=== PATIENT | male | born 1975 | race Caucasian/White ===

== ENCOUNTER 2016-12-13 17:30 | Inpatient (IN) | payer OTHER ==
[~2016-12-13] VITALS: Ht 175.3 cm; Wt 135.7 kg
[~2016-12-13 17:30] MED LIST: ADVAIR 250/501 DIS1 IH; ALLOPURINOL300 MG PO; ALTACE5 MG PO; BENTYL10 MG PO; BENTYL20 MG PO; DELTASONE20 M1 PO; FENOFIBRATE160 M1 PO; GLIPIZIDE5 M1 PO; HUMIRA10 MG/0.2 SC; JANUVIA25 M1 PO; LANTUS 3 M100 UNITS1 SC; LOPERAMIDE2 M1 PO; METFORMIN HCL500 MG PO; METRONIDAZOLE500 MG PO; NOVOLOG 10100 UNITS/ SC; OXAYDO5 MG PO; PANTOPRAZOLE SO40 MG PO; PERCOCET 5/31 TABLET PO; PHENERGAN25 MG PR; PRAVASTATIN SOD20 MG PO; PROMETHAZINE HC25 M1 PO; RANITIDINE HCL300 MG PO; TRICOR145 MG PO; VENTOLIN17 GM IH; VICTOZA 2-0.6 MG/0.1 SC; ZANTAC150 MG PO; ZOFRAN ODT4 MG PO; ZYLOPRIM300 MG PO
[2016-12-13 18:58] LABS: BASE EXCESS -1.5 mEq/L (-3 to +3); BICARBONATE 21.7 mEq/L (22-26); CARBOXY HGB 0 % (0-5); COMMENTS - BLOOD GASES NAC+; DEVICE PB 840 NIPPV; FI02 100 %; METHEMOGLOBIN 0.7 % (0-1.5); MODE SPONT; PCO2 32 mm Hg (35-45); PO2 516 mm Hg (80-100); SITE RR; TOTAL RESP RATE 18 resp/min; pH 7.44 (7.35-7.45)
[2016-12-13 18:59] LABS: PEEP 5 CM/H20; PRES. SUPPORT 10 CM/H2O
[2016-12-13 19:05] LABS: EOSINOPHIL (%) 1.1 % (0-5); EOSINOPHIL COUNT 0.1 K/uL (0-0.3); HEMATOCRIT 41.6 % (38.0-50.0); IMMATURE GRANULOCYTE (%) 0.3 % (0.0-0.7); IMMATURE GRANULOCYTE COUNT 0.3 K/uL; LYMPHOCYTE COUNT 0.9 K/uL (1.0-2.8); MCH 29.8 PG (29.0-34.0); MCHC 33.9 G/DL (30.0-36.0); MCV 87.9 FL (86-99); MEAN PLAT.VOLUME 11.6 uM^3 (9.0-12.4); MONOCYTE COUNT 0.6 K/uL (0-0.8); NEUTROPHIL (%) 83.5 % (45-76); NEUTROPHIL COUNT 8.5 K/uL (1.8-6.4); PLATELET COUNT 236 K/uL (156-360); RBC DIS.WIDTH-CV 12.5 % (11.8-14.6); RBC DIS.WIDTH-SD 39.7 % (39-53); RED BLOOD COUNT 4.73 M/uL (4.00-5.50); WHITE BLOOD COUNT 10.1 K/uL (4.1-10.2)
[2016-12-13 19:16] LABS: CHLORIDE 106 mEq/L (99-109); SODIUM 140 mEq/L (136-147)
[2016-12-13 19:18] LABS: GLUCOSE 192 mg/dL (70-99)
[2016-12-13 19:19] LABS: ANION GAP 12 MEQ/L (2-14)
[2016-12-13 19:20] LABS: TOTAL BILIRUBIN 0.4 mg/dL (0.0-1.0)
[2016-12-13 19:21] LABS: ALKALINE PHOSPHATASE 27 IU/L (3-129)
[2016-12-13 19:22] LABS: GFR ESTIMATE (CALCULATED) > 59 mL/min/
[2016-12-13 19:23] LABS: UREA NITROGEN (BUN) 19 mg/dL (9-23)
[2016-12-13 19:26] LABS: TROP-I INTERPRETATION NEGATIVE; TROPONIN-I < 0.01 ng/mL (0.0-0.30)
[2016-12-13] MEDS ORDERED: INSULIN PUMP SCCONT (20:24)
[2016-12-13 20:33] LABS: INFLUENZA A VIRAL ANTIGEN POSITIVE; INFLUENZA B VIRAL ANTIGEN NEGATIVE
[2016-12-14 01:29] VITALS: BP 98/58
[2016-12-14 01:58] LABS: METH RESISTANT S AUREUS PCR POSITIVE (NEGATIVE)
[2016-12-14 02:00] LABS: PROBE CHECK PASS
[2016-12-14 02:41] LABS: POINT-OF-CARE METER ID UU13113698
[2016-12-14 05:18] VITALS: BP 98/53
[2016-12-14 06:22] LABS: HEMATOCRIT 38.9 % (38.0-50.0); MCH 30.3 PG (29.0-34.0); MCHC 33.9 G/DL (30.0-36.0); MCV 89.4 FL (86-99); MEAN PLAT.VOLUME 11.9 uM^3 (9.0-12.4); PLATELET COUNT 209 K/uL (156-360); RBC DIS.WIDTH-CV 12.7 % (11.8-14.6); RBC DIS.WIDTH-SD 41.4 % (39-53); RED BLOOD COUNT 4.35 M/uL (4.00-5.50)
[2016-12-14 06:23] LABS: WHITE BLOOD COUNT 6.7 K/uL (4.1-10.2)
[2016-12-14 06:28] LABS: ANION GAP 11 MEQ/L (2-14); CHLORIDE 104 MEQ/L (99-109); GFR ESTIMATE (CALCULATED) > 59 mL/min/; GLUCOSE 258 mg/dL (70-99); POTASSIUM 4.5 MEQ/L (3.7-5.4); SAMPLE HEMOLYSIS CHECK 0; SAMPLE ICTERIC CHECK 0; SAMPLE LIPEMIA CHECK 0; SODIUM 136 MEQ/L (136-147); UREA NITROGEN (BUN) 16 mg/dL (9-23)
[2016-12-14 07:49] LABS: POINT-OF-CARE METER ID UU13113698
[2016-12-14 09:06] VITALS: BP 127/69
[2016-12-14 11:44] LABS: POINT-OF-CARE METER ID UU13113698
[2016-12-14 12:23] VITALS: BP 114/63
[2016-12-14 16:33] VITALS: BP 118/61
[2016-12-14 16:46] LABS: POINT-OF-CARE METER ID UU14174216
[2016-12-14] MEDS ORDERED: OSELTAMIVIR PHO75 MG PO (17:17)
== END 2016-12-14 18:27 | disposition home or self-care (01) | DRG 202 ==
LOC: EME → EDBD 17:30 → EME 17:30 → EDOF 23:27 → 4EAST 12-14 00:38
PROVIDERS: Emergency Medicine; Internal Medicine; Pediatrics
DX: J45.901 Unspecified asthma with (acute) exacerbation (principal); J96.01 Acute respiratory failure with hypoxia; Z68.41 Body mass index [BMI] 40.0-44.9, adult; J10.1 Influenza due to other identified influenza virus with other respiratory manifestations; E11.9 Type 2 diabetes mellitus without complications; I10 Essential (primary) hypertension; E78.5 Hyperlipidemia, unspecified; K21.9 Gastro-esophageal reflux disease without esophagitis; Z96.41 Presence of insulin pump (external) (internal); R91.1 Solitary pulmonary nodule; G47.33 Obstructive sleep apnea (adult) (pediatric); L40.9 Psoriasis, unspecified; E66.01 Morbid (severe) obesity due to excess calories; Z90.49 Acquired absence of other specified parts of digestive tract
CPT/HCPCS: 36600; 71010; 71275; 80048; 80053; 82803; 82948; 83880; 84484; 85025; 85027; 87502; 87641; 87651 90; 93005; 94002; 94640; 94640 76; 94644; 94799; 99202; J0171; J1030; J1100; J1644; J2930; J3475; J7030; J7644

== ENCOUNTER 2017-08-06 06:34 | Emergency (ER) | payer OTHER ==
[~2017-08-06] VITALS: Ht 175.3 cm; Wt 138.5 kg
[~2017-08-06 06:34] MED LIST changes: +INSULIN PUMP SCCONT; +OSELTAMIVIR PHO75 MG PO
[2017-08-06 06:58] LABS: HEMATOCRIT 43.7 % (38.0-50.0); MCH 29.5 PG (29.0-34.0); MCV 89.5 FL (86-99); MEAN PLAT.VOLUME 11.7 uM^3 (9.0-12.4); PLATELET COUNT 226 K/uL (156-360); RBC DIS.WIDTH-CV 12.5 % (11.8-14.6); RBC DIS.WIDTH-SD 41.1 % (39-53); RED BLOOD COUNT 4.88 M/uL (4.00-5.50); WHITE BLOOD COUNT 7.8 K/uL (4.1-10.2)
[2017-08-06 07:25] LABS: CHLORIDE 104 mEq/L (99-109); SODIUM 136 mEq/L (136-147)
[2017-08-06 07:27] LABS: GLUCOSE 222 mg/dL (70-99)
[2017-08-06 07:28] LABS: ANION GAP 10 MEQ/L (2-14)
[2017-08-06 07:30] LABS: GFR ESTIMATE (CALCULATED) > 59 mL/min/
[2017-08-06 07:31] LABS: UREA NITROGEN (BUN) 22 mg/dL (9-23)
[2017-08-06] MEDS ORDERED: GLUCOPHAGE500 MG PO (07:45)
[2017-08-06] MEDS ORDERED: HUMALOG100 UNIT/1 SC (07:47)
[2017-08-06] MEDS ORDERED: ADVAIR HFA120 INHALA IH (07:49)
[2017-08-06] MEDS ORDERED: FARXIGA5 MG PO (07:50)
[2017-08-06] MEDS ORDERED: PREDNISONE20 MG PO (08:32)
[2017-08-06 09:09] VITALS: BP 105/76
== END 2017-08-06 09:11 | disposition home or self-care (01) ==
LOC: EME 06:34
DX: J45.901 Unspecified asthma with (acute) exacerbation (principal); R11.0 Nausea; Z87.891 Personal history of nicotine dependence; E11.9 Type 2 diabetes mellitus without complications; Z79.4 Long term (current) use of insulin; E78.5 Hyperlipidemia, unspecified; I10 Essential (primary) hypertension; K21.9 Gastro-esophageal reflux disease without esophagitis
CPT/HCPCS: 71020; 80048; 85027; 94640; 99281; 99285; J2405; J2930; J7030

== ENCOUNTER 2017-08-29 20:09 | Emergency (ER) | payer OTHER ==
[~2017-08-29] VITALS: Ht 175.3 cm; Wt 140.6 kg
[~2017-08-29 20:09] MED LIST changes: +ADVAIR HFA120 INHALA IH; +FARXIGA5 MG PO; +GLUCOPHAGE500 MG PO; +HUMALOG100 UNIT/1 SC; +PREDNISONE20 MG PO
[2017-08-29 20:50] LABS: EOSINOPHIL (%) 4.2 % (0-5); EOSINOPHIL COUNT 0.2 K/uL (0-0.3); HEMATOCRIT 42.5 % (38.0-50.0); IMMATURE GRANULOCYTE (%) 0.4 % (0.0-0.7); INSTRUMENT ABS NEUTROPHIL CT 2.8 K/uL; LYMPHOCYTE COUNT 1.6 K/uL (1.0-2.8); MCH 30.1 PG (29.0-34.0); MCHC 33.4 G/DL (30.0-36.0); MEAN PLAT.VOLUME 11.5 uM^3 (9.0-12.4); MONOCYTE (%) 15.3 % (3-12); MONOCYTE COUNT 0.8 K/uL (0-0.8); NEUTROPHIL (%) 50.6 % (45-76); NEUTROPHIL COUNT 2.8 K/uL (1.8-6.4); PLATELET COUNT 230 K/uL (156-360); RBC DIS.WIDTH-CV 12.5 % (11.8-14.6); RBC DIS.WIDTH-SD 41.1 % (39-53); RED BLOOD COUNT 4.72 M/uL (4.00-5.50); WHITE BLOOD COUNT 5.5 K/uL (4.1-10.2)
[2017-08-29 21:08] LABS: CHLORIDE 103 mEq/L (99-109); POTASSIUM 3.5 mEq/L (3.7-5.4); SODIUM 138 mEq/L (136-147)
[2017-08-29 21:09] LABS: MAGNESIUM 1.8 mg/dL (1.3-2.7)
[2017-08-29 21:11] LABS: GLUCOSE 155 mg/dL (70-99)
[2017-08-29 21:12] LABS: ANION GAP 13 MEQ/L (2-14)
[2017-08-29 21:13] LABS: TOTAL BILIRUBIN 0.4 mg/dL (0.0-1.0)
[2017-08-29 21:14] LABS: ALKALINE PHOSPHATASE 29 IU/L (3-129); GFR ESTIMATE (CALCULATED) > 59 mL/min/
[2017-08-29 21:16] LABS: UREA NITROGEN (BUN) 14 mg/dL (9-23)
[2017-08-29 21:18] LABS: CREATINE KINASE 84 IU/L (1-294); LIPASE 25 U/L (1.0-51.0); TOTAL CK 84 IU/L (1-294); TROP-I INTERPRETATION NEGATIVE; TROPONIN-I < 0.01 ng/mL (0.0-0.30)
[2017-08-29 21:23] LABS: CK-MB 0.8 ng/mL (0.0-4.9)
[2017-08-29 21:43] LABS: ADD MIUA? NO; BILIRUBIN NEGATIVE; BLOOD NEGATIVE; COLOR YELLOW ((YELLOW)); GLUCOSE (STRIP) >=500; KETONES NEGATIVE; LEUKOCYTES NEGATIVE; NITRITE NEGATIVE; PROTEIN (STRIP) NEGATIVE; SPECIFIC GRAVITY 1.017 (1.000-1.030); UCUL ADDED? NO; UROBILINOGEN 0.2 MG/DL (0.2-1.0)
[2017-08-30] MEDS ORDERED: BENTYL20 MG PO (01:08)
[2017-08-30 01:15] VITALS: BP 108/63
== END 2017-08-30 01:45 | disposition home or self-care (01) ==
LOC: EME 20:09
PROVIDERS: Emergency Medicine
DX: R10.84 Generalized abdominal pain (principal); R07.9 Chest pain, unspecified; E11.9 Type 2 diabetes mellitus without complications; E78.5 Hyperlipidemia, unspecified; I10 Essential (primary) hypertension; Z79.4 Long term (current) use of insulin; K21.9 Gastro-esophageal reflux disease without esophagitis; E66.9 Obesity, unspecified; J45.909 Unspecified asthma, uncomplicated; Z87.442 Personal history of urinary calculi; M10.9 Gout, unspecified; Z87.891 Personal history of nicotine dependence
CPT/HCPCS: 71020; 71275; 74174; 80053; 81003; 82010; 82550; 82553; 83605; 83690; 83735; 84484; 85025; 93005; 99281; 99285; J1885; J2270; J7030

== ENCOUNTER 2017-10-26 08:58 | Emergency (ER) | payer OTHER ==
[~2017-10-26] VITALS: Ht 175.3 cm; Wt 137.3 kg
[2017-10-26 09:56] LABS: EOSINOPHIL (%) 1.1 % (0-5); EOSINOPHIL COUNT 0.1 K/uL (0-0.3); HEMATOCRIT 49.1 % (38.0-50.0); IMMATURE GRANULOCYTE (%) 0.3 % (0.0-0.7); INSTRUMENT ABS NEUTROPHIL CT 9.7 K/uL; LYMPHOCYTE COUNT 1.7 K/uL (1.0-2.8); MCH 29.9 PG (29.0-34.0); MCHC 34.2 G/DL (30.0-36.0); MCV 87.5 FL (86-99); MEAN PLAT.VOLUME 11.3 uM^3 (9.0-12.4); MONOCYTE (%) 6.3 % (3-12); MONOCYTE COUNT 0.8 K/uL (0-0.8); NEUTROPHIL (%) 78.3 % (45-76); NEUTROPHIL COUNT 9.7 K/uL (1.8-6.4); PLATELET COUNT 262 K/uL (156-360); RBC DIS.WIDTH-SD 38.8 % (39-53); RED BLOOD COUNT 5.61 M/uL (4.00-5.50); WHITE BLOOD COUNT 12.4 K/uL (4.1-10.2)
[2017-10-26 10:04] LABS: CHLORIDE 103 mEq/L (99-109); POTASSIUM 4.6 mEq/L (3.7-5.4); SODIUM 135 mEq/L (136-147)
[2017-10-26 10:06] LABS: GLUCOSE 246 mg/dL (70-99)
[2017-10-26 10:07] LABS: ANION GAP 13 MEQ/L (2-14)
[2017-10-26 10:08] LABS: TOTAL BILIRUBIN 0.6 mg/dL (0.0-1.0)
[2017-10-26 10:09] LABS: ALKALINE PHOSPHATASE 32 IU/L (3-129)
[2017-10-26 10:10] LABS: GFR ESTIMATE (CALCULATED) > 59 mL/min/ (58.99-99999)
[2017-10-26 10:11] LABS: UREA NITROGEN (BUN) 17 mg/dL (9-23)
[2017-10-26 10:13] LABS: LIPASE 25 U/L (1.0-51.0)
[2017-10-26 13:49] LABS: ADD MIUA? YES; BILIRUBIN NEGATIVE; BLOOD NEGATIVE; GLUCOSE (STRIP) 150; KETONES NEGATIVE; LEUKOCYTES NEGATIVE; NITRITE NEGATIVE; PROTEIN (STRIP) 30; UROBILINOGEN 0.2 MG/DL (0.2-1.0)
[2017-10-26 13:50] LABS: COLOR YELLOW ((YELLOW))
[2017-10-26 13:57] LABS: BACTERIA RARE /HPF; EPITHELIAL CELLS RARE /HPF; HYALINE CASTS TNTC /LPF; MUCUS 2+ /LPF; UCUL ADDED? YES
[2017-10-26 14:20] LABS: SPECIFIC GRAVITY 1.098 (1.000-1.030)
[2017-10-26] MEDS ORDERED: BENTYL20 MG PO (15:17)
[2017-10-26 15:45] VITALS: BP 128/79
== END 2017-10-26 15:48 | disposition home or self-care (01) ==
LOC: EME 08:58
PROVIDERS: Emergency Medicine
DX: R10.9 Unspecified abdominal pain (principal); K52.9 Noninfective gastroenteritis and colitis, unspecified; E10.9 Type 1 diabetes mellitus without complications; G89.29 Other chronic pain; K21.9 Gastro-esophageal reflux disease without esophagitis; I10 Essential (primary) hypertension; E78.5 Hyperlipidemia, unspecified; J45.909 Unspecified asthma, uncomplicated; M10.9 Gout, unspecified; L40.9 Psoriasis, unspecified; Z96.41 Presence of insulin pump (external) (internal); Z87.442 Personal history of urinary calculi; Z79.4 Long term (current) use of insulin; Z90.89 Acquired absence of other organs
CPT/HCPCS: 74177; 80053; 81003; 82010; 83605; 83690; 85025; 87086; 99281; 99285; J0500; J1200; J1630; J1885; J2405; J7030

== ENCOUNTER 2018-01-17 05:24 | Emergency (ER) | payer OTHER ==
[~2018-01-17] VITALS: Ht 205.7 cm; Wt 138.3 kg
[2018-01-17] MEDS ORDERED: VALIUM5 MG PO (07:26)
[2018-01-17] MEDS ORDERED: PERCOCET 5/31 TABLET PO (07:26)
[2018-01-17 08:41] VITALS: BP 169/101
== END 2018-01-17 08:42 | disposition home or self-care (01) ==
LOC: EME 05:24
DX: M51.26 Other intervertebral disc displacement, lumbar region (principal); M51.36 Other intervertebral disc degeneration, lumbar region; Z88.8 Allergy status to other drugs, medicaments and biological substances
CPT/HCPCS: 72131; 99281; 99284; J1885